=== PATIENT | female | born 1995 | race Two or more races ===

== ENCOUNTER 2021-06-16 23:16 | Outpatient (CLI) | payer OTHER | END 2021-06-17 01:02 | disposition home or self-care (01) | LOC: GENOP 23:16 | DX: O99.891 Other specified diseases and conditions complicating pregnancy (principal); N89.8 Other specified noninflammatory disorders of vagina; R10.30 Lower abdominal pain, unspecified; Z88.2 Allergy status to sulfonamides; Z88.8 Allergy status to other drugs, medicaments and biological substances; Z3A.25 25 weeks gestation of pregnancy | CPT/HCPCS: 83518; G0463 ==